=== PATIENT | female | born 1980 | race Caucasian/White ===

== ENCOUNTER 2019-07-17 07:56 | Day surgery (SDC) | payer OTHER, SELFPAY ==
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
[2019-07-17 08:28] VITALS: BP 112/70; PULSE 88; RESP 19; TEMP 36.9; O2SAT 100
[2019-07-17] MEDS: Lactated Ringers 1,000 ML 80 ML IV (09:02)
[2019-07-17] MEDS: CLINDAMYCIN 600 MG/50 ML BAG 100 MG IVPB (10:40)
[2019-07-17] MEDS: Bupivacaine 0.5% Pres-Free 30 ML VIAL (10:44)
[2019-07-17] MEDS: Lidocaine 1% Pres-Free 5 ML VIAL (11:00)
--- NOTE | 2019-07-17 11:05 | SOFT_PTH ---
PATIENT: BERTA MONCADA LOC: [facility] U#:[id number] AGE/SX: 39/F ROOM: RE07/17/[address]: Gregorio Gamble : 1980 BED: DIS: 07/17/2019 SPEC #: [id number] RECD: 07/17/19 12:45 STATUS: DARRELL REQ #: [id number] SUE: 07/17/19 11:[address]: Gregorio Gamble DEPT: Surgical Specimen RECD BY: Thea Lilly ENTERED: 07/17/19 12:47 SP TYPE: SOFT OTHR DR: Dick Baxter Tissues: 1 - [facility] Procedures: GROSS AND MICRO LEVEL 3 Comments: [id number]
[2019-07-17] MEDS: Dexamethasone 4 MG/ML VIAL (11:13)
--- NOTE | 2019-07-17 11:23 | PDOC.DSDIS_ITS ---
Discharge Plan Disposition Patient Disposition: HOME Condition: Good Discharge Details Reason For Visit: Correction left tailor's bunion deformity Attending Provider: Gregorio Gamble Primary Care Provider: Dick Baxter [place] Meds and New Rx's Prescriptions: New ibuprofen 600 mg tablet 600 mg PO Q6H PRN (Reason: post op apin and inflamatiom) Qty: 60 RF: 0 hydrocodone-acetaminophen [[place]win] 5-325 mg tablet 1 tab PO Q6H PRN (Reason: pain) Qty: 7 RF: 0 Continued cyanocobalamin (vitamin B-12) [Vitamin B-12] 1,000 mcg Tablet 1,000 mcg PO DAILY RF: 0 ferrous sulfate 325 mg (65 mg iron) Tablet,Delayed Release (Dr/Ec) 325 mg PO DAILY RF: 0 cholecalciferol (vitamin D3) [Vitamin D3] 1,000 unit Capsule 1,000 unit PO DAILY RF: 0 omega 4-mqm-tgw-fish oil [Fish Oil] 1,000 mg (120 mg-180 mg) Capsule 1 cap PO DAILY RF: 0 psyllium husk 0.4 gram Capsule 0.4 g PO DAILY RF: 0 Discharge Instructions Activity:: Elevate Remove Dressings/Wound Care:: Do Not Remove Shower/Bathe:: Cover Diet:: Normal Diet Discharge Orders Discharge Orders: Discharge Order (Routine); Ordered 07/17/19 Ordered By: Gregorio Gamble DS: Diagnosis Discharge Diagnosis (1) Tailor's bunion of left foot: Start date: 07/17/19 Start time: 11:23 Status: Acute Asessment and Plan: Status post excision soft tissue mass left fifth MPJ and partial fifth met head resection for correction of tailor's bunion deformity.
[2019-07-17 12:06] VITALS: BP 103/64; PULSE 72; RESP 16; TEMP 36.4; O2SAT 100
--- NOTE | 2019-07-17 12:19 | ROE_ITS ---
DATE OF PROCEDURE: July 17, 2019 PREOPERATIVE DIAGNOSIS: Soft tissue mass left fifth MPJ with tailors bunion deformity. POSTOPERATIVE DIAGNOSIS: Same. PROCEDURES: 1. Partial fifth metatarsal head resection. 2. Excision soft tissue mass left fifth MPJ region. SURGEON: Gregorio Gamble D.P.M. ANESTHESIA: IV General. ANESTHESIA PROVIDER: Eulalio Zamarripa CRNA OPERATIVE INDICATIONS: 39-year-old female with pain associated with a left tailors bunion and soft t issue mass, interfering with shoe gear, weightbearing and ambulation. She desires surgical excision. She understands risks and complications of surgery pertaining to pain, scarring, infection, recurre nce of the soft tissue mass potentially requiring revisional procedures. Informed consent has been o btained. No promises made to the final outcome of surgery. REPORT OF OPERATION: Joselin was brought to the operative suite and placed in the supine position whe re the left foot was prepped and draped in the usual sterile podiatric fashion. Anesthesia being ob tained, the left foot was exsanguinated; a well-padded ankle tourniquet inflated 250 mmHg. Attention was directed to the fifth MPJ where a 3 cm incision was made laterally, dorsally along the fifth MPJ. The incision was deepened in controlled depth fashion; hemostasis acquired with electroca utery, as needed. A soft tissue swelling was appreciated on the plantar aspect of the fifth MPJ. Th is region was dissected and a mass was identified - it's white, it's glistening; it appeared more michael id than what I would expect a ganglion; there was no fluid within the mass; it was unclear exactly wh at this tissue is. It appeared to be coming from the plantar aspect of the fifth MPJ, more from the medial side of that joint. With dissecting scissors and a pickup the tissue was dissected all the wa y to the medial side of the foot; it was removed in total and sent off to pathology. The joint capsu le does appear to be fully intact. At this time attention was directed to the dorsal lateral aspect of the joint capsule, which was inci sed. The capsule was reflected dorsally and plantarly and the fifth metatarsal head delivered into t he wound. With osteotome and mallet, the lateral hyperostosis was resected basically from the point where the base of the proximal phalanx hits the head laterally, back to the fifth metatarsal shaft. All rough and bony edges were rasped smooth. Copious irrigation was performed. The joint capsule wa s repaired with simple interrupted suture #3-0 Vicryl. The subcutaneous layer was repaired with #4-0 Vicryl and the skin was coapted with simple interrupted suture #4-0 nylon. Four milligrams of dexam ethasone phosphate was infused into the wound. Xeroform, gauze fluff compression dressings were appl ied. The tourniquet was released at approximately twenty-five minutes with vascularity returning imm ediately to all toes. Joselin left the OR with vital signs stable, vascular status intact. She will be followed by me in the office next week.
== END 2019-07-17 12:42 | disposition home or self-care (01) ==
PROVIDERS: PCP Family Medicine; Visit Provider Podiatrist
PROC: (CPT 28288; principal; 2019-07-17 10:00)
PROC: (CPT 28288; 2019-07-17 10:00)
DX: M21.622 Bunionette of left foot (principal); D21.22 Benign neoplasm of connective and other soft tissue of left lower limb, including hip
CPT/HCPCS: 28288; 28039; NC; 88304; J1100; J1885; J2250; J2405; J3010